=== PATIENT | male | born 1990 | race Caucasian/White ===

== ENCOUNTER 2023-03-14 22:50 | Emergency (ER) | payer MEDICAID ==
[~2023-03-14] VITALS: Ht 185.4 cm; Wt 56.7 kg
[2023-03-15] MEDS ORDERED: MINERAL OIL 133 ML (PYXIS) 1 EA ENEMA RC ONE ×2 (00:29→00:30)
[2023-03-15] MEDS ORDERED: SENN-18 PO (00:33)
[2023-03-15 01:49] VITALS: BP 126/80; TEMP 98.1; O2SAT 98
== END 2023-03-15 01:50 | disposition home or self-care (01) ==
LOC: ER 22:55
DX: K59.00 Constipation, unspecified (principal); Z79.899 Other long term (current) drug therapy
CPT/HCPCS: 74018